=== PATIENT | male | born 1940 | race Caucasian/White ===

== ENCOUNTER 2018-04-03 20:07 | Observation (INO) | payer MEDICARE, OTHER, SELFPAY ==
[2018-04-03 20:08] VITALS: BP 160/67; PULSE 74; RESP 22; TEMP 36.8; O2SAT 98; BMI 27.9
--- NOTE | 2018-04-03 20:35 | EKG12_ITS ---
Test Reason : CP Blood Pressure : / mmHG Vent. Rate : 070 BPM Atrial Rate : 070 BPM P-R Int : 140 ms QRS Dur : 096 ms QT Int : 392 ms P-R-T Axes : 065 003 036 degrees QTc Int : 423 ms Normal sinus rhythm Incomplete right bundle branch block Confirmed by CHANEL COLLINS, LORNA ([id number]), editorial writer JOSH YANES ([id number] on 04/06/2018 1:02:13 PM Referred By: KIRILL/JOSSELYN Confirmed By:LORNA BUCHANAN MD
--- NOTE | 2018-04-03 20:38 | ED.RN ---
NO OLD EKG'S IN MUSE
[2018-04-03 20:41] LABS: Absolute Lymphocyte Count 2.75 X10^3/ul (0.83-4.51); Basophil# 0.02 X10^3/uL; Basophil% 0.3 % (0-1); Eosinophil# 0.13 X10^3/uL; Eosinophils% 1.7 % (0-5); Hematocrit 42.7 % (40-54); Hemoglobin 14.9 g/dl (13.0-16.5); Lymphocyte # 2.75 X10^3/ul (4.0); Lymphocyte % 35.1 % (19-41); Mean Corp Hgb Conc 34.9 g/gl (32-36); Mean Corpuscular Hgb 32.3 pg (27.0-32.0); Mean Corpuscular Volume 92.6 fL (80-94); Mean Platelet Vol. 10.4 fl (6.2-12.0); Monocyte# 0.94 X10^3/uL; Neutrophil # 3.99 X10^3/uL (2.7-7.7); Neutrophil % 50.8 % (47-70); POSITIVE COUNT NO; POSITIVE DIFFERENTIAL NO; POSITIVE MORPHOLOGY NO; Platelet Count 175 K/mm3 (150-450); RBC Distribution Width CV 14.1 % (11.6-14.6); RBC Distribution Width SD 47.4 fl (35.1-43.9); Red Blood Count 4.61 M/mm3 (4.6-6.2); White Blood Count 7.8 K/mm3 (4.4-11.0)
[2018-04-03] MEDS: Aspirin 81 MG TAB.CHEW 324 MG PO (20:44)
--- NOTE | 2018-04-03 20:48 | RAD_ITS ---
STUDY: X-RAY CHEST REASON FOR EXAM: Male, 77 years old. Chest pain. TECHNIQUE: PA and lateral views of the chest. COMPARISON: None. FINDINGS: The lungs are clear and expanded. There is no demonstrated pleural abnormality. Sternal cerclage wires and vascular clips are present from a prior sternotomy and coronary artery bypass graft procedure (CABG). The cardiac silhouette is within normal limits. Normal mediastinum and ilir. Normal visualized pulmonary arteries. Normal visualized aortic arch and descending thoracic aorta. There are diffuse degenerative changes of the visualized thoracic spine. Normal visualized ribs, clavicles, and shoulders. There is no demonstrated abnormality of the visualized soft tissue structures of the upper abdomen. RAD/Chest PA and Lateral IMPRESSION: No acute cardiopulmonary process. Electronically Signed: Demetrice Valdez MD at 21:43 EDT Tel , Service support ,
[2018-04-03 21:03] LABS: Anion Gap 6 (5-15); BUN 20 mg/dL (7-18); BUN/Creat Ratio 14.8 RATIO (10-20); Chloride 106 mmol/L (98-107); Creatinine, Serum 1.35 mg/dL (0.70-1.30); EST Glomerular Filtration Rate 54 mL/min (>60); Est Glom Filt Rate - Afr Amer 66 mL/min (>60); Estimated Creatinine Clearance 39.86 ml/min; Glucose 191 mg/dL (74-106); Potassium 3.8 mmol/L (3.5-5.1); Sodium Level 137 mmol/L (136-145)
--- NOTE | 2018-04-03 21:46 | ED.VISSUMM ---
- ER Visit Summary Date of Service: 04/03/18 Chief Complaint: Chest pain History of Present Illness: The patient is a 77 M who presents with chest pain. It began about 5 hours ago. He describes this very minimal. He states it is one half out of 10. However he has had shortness of breath particularly with exertion over the past month. He is normally able to exercise with no difficulty but has been unable to do this lately. He did see cardiology 2 days ago who felt this was angina and he was scheduled for an outpatient stress test. However he was told if he develops symptoms at rest he needed to go to the emergency department. Today while at rest about 5 hours before presentation he began to develop some very mild chest discomfort. He had some nausea this morning. No diaphoresis. No cough congestion rhinorrhea or infectious symptoms. Physical Examination: Afebrile vitals are notable for blood pressure 160/107 respiratory rate 22 Moist mucous membranes Resting comfortably no distress Heart regular rate and rhythm Lungs are clear Abdomen soft Extremities nontender without edema 2+ symmetric radial pulses Test Results: Chest x-ray shows no acute process. EKG shows normal sinus rhythm at a rate of 70. CBC BMP unremarkable and troponin is negative. Emergency Department Course and Treatment: Patient was given aspirin. He is already scheduled for outpatient stress test and has known coronary disease. He has progressive symptoms. He had not had any chest pain until today. Therefore I do feel he needs admitted for more urgent evaluation and schedule outpatient workup. Patient to be discussed with the hospitalist and admitted. Treatment Plan: [] Disposition: Admit Impression: Chest pain Dyspnea on exertion This note was generated with [employer] dictation software. It may contain incorrect words, spelling, and punctuation that were not noted in review of the chart prior to signing ED Disposition - Plan for ED Patient: Chief Complaint: Chest Pain Referrals: Erik Ji MD [Primary Care Provider] -
[2018-04-03 22:08] VITALS: BP 141/57; PULSE 67; RESP 18; O2SAT 98
[2018-04-03 22:21] VITALS: BP 141/57; PULSE 69; RESP 20; O2SAT 98
--- NOTE | 2018-04-03 23:02 | HP.PCM_ITS ---
Problem List (1) CAD (coronary artery disease) Status: Acute (2) CAD (coronary artery disease) of artery bypass graft Status: Acute (3) Chest pain Status: Acute (4) HTN (hypertension) Status: Chronic (5) Lipidemia Status: Acute History of Present Illness Date of Admission: 04/03/18 Chief Complaint: Chest pain The patient is a 77 year old male w/ h/o CAD s/p CABG x 18 yrs ago, HTN, and lipidemia admitted for chest pain. He has SOB several weeks ago and went this PCP who prescribed him nitro. He also start cardiology and an outpt stress test was arranged. However, he developed very mild chest pain today. Pain was substernal and lasted for minutes. Pain was not exertional. He was able to exercise as usual and has been active. Chest pain was not associated with any other symptoms. Nothing made the pain better or worse. No radiation of pain. Past Medical History Past Medical History (Chronic Problems): Chronic Problems HTN (hypertension) (Chronic) Allergies sildenafil [From Viagra] Allergy (Verified 04/03/18 20:12) Other tadalafil [From Cialis] Allergy (Verified 04/03/18 20:12) Other Home Medications: Ambulatory Orders Medication Instructions Recorded Ascorbic Acid [Vitamin C] 1,000 mg PO DAILY 04/03/18 Aspirin [Aspir-Low] 81 mg PO DAILY 04/03/18 Atenolol [Tenormin (beta marie)] 50 mg PO DAILY 04/03/18 Ibuprofen 800 mg PO PRN PRN 04/03/18 Levothyroxine [Synthroid] 112 mcg PO DAILY 04/03/18 Lisinopril [Zestril] 1 tab PO DAILY 04/03/18 Nitroglycerin [Nitroglycerin] 1 tab SL PRN PRN 04/03/18 Pantoprazole Sodium [Protonix] 20 mg PO DAILY 04/03/18 Selenium Sulfide 120 ml TP PRN PRN 04/03/18 Simvastatin 20 mg PO DAILY 04/03/18 Testosterone Cypionate 200 mg IM QMONTH 04/03/18 Vitamin B Complex 1 each PO DAILY 04/03/18 Surgical History: coronary bypass surgery Lives: Spouse/ Significant Other Smoking Status: Never smoker Alcohol: None Drugs: None - *Family History Maternal History Items: No pertinent history Review of Systems Constitutional: Denies: Chills, Fever, Weight Change HEENT: Denies: Head Aches, Sinus Congestion, Sinus Drainage Cardiovascular: Reports: Chest Pain. Denies: Claudication, Chest Tightness, Edema, Heaviness, Palpitations, Paroxysmal Noc. Dyspnea, Syncope Respiratory: Denies: Cough, Shortness of breath at rest, Sputum production Gastrointestinal: Denies: Abdominal Pain, Nausea, Vomiting Genitourinary: Denies: Dysuria Musculoskeletal: Denies: Joint Pain, Joint Tenderness Skin: Denies: Rash, Wounds Neurological: Denies: Numbness, Tingling, Focal weakness Psychiatric: Denies: Anxiety, Depression, Homicidal Ideations, Suicidal Ideations Hematologic/ Lymphatic: Denies: Easy Bruising, Easy Bleeding VTE Information - Inpt Only VTE Present on Admission: No VTE Mechan Device Prophylaxis: SCD's VTE Pharm Prophylaxis ordered?: Yes Patient Problems: Active and Suspected Problems CAD (coronary artery disease) (Acute) CAD (coronary artery disease) of artery bypass graft (Acute) Chest pain (Acute) Lipidemia (Acute) - Physical Exam General: Alert, Oriented x3, Cooperative HEENT: Atraumatic, PERRLA, EOMI, Normocephalic Neck: Supple, No JVD, Negative Carotid Bruits Lungs: Clear to auscultation, Normal air movement Cardiovascular: Regular rate, No murmurs Abdomen: Bowel Sounds Present, Soft, Non Tender Extremities: No edema, Capillary Refill Less than 3 Seconds Skin: No rashes, No breakdown Musculoskeletal: No Tenderness to Palpation of Joints or Extremities Neurological: Cranial nerves II-XII grossly intact Psych/Mental Status: Normal Affect, Appropriate Vital Signs Temp Pulse Resp BP Pulse Ox 98.2 F 69 20 H 141/57 H 98 04/03/18 20:08 04/03/18 22:21 04/03/18 22:21 04/03/18 22:21 04/03/18 22:21 Oxygen Flow Rate (L/min) 2 Oxygen Delivery Method Room Air Weight: 76.204 kg Body Mass Index (BMI) 27.9 Laboratory Tests Past 24 Hrs 04/03/18 04/03/18 20:10 20:10 WBC 7.8 RBC 4.61 Hgb 14.9 Hct 42.7 MCV 92.6 MCH 32.3 H MCHC 34.9 RDW 14.1 RDW Differential 47.4 H Plt Count 175 MPV 10.4 Immature Gran % (Auto) 0.100 Neut % (Auto) 50.8 Lymph % (Auto) 35.1 [place] % (Auto) 12.0 H Eos % (Auto) 1.7 Baso % (Auto) 0.3 Absolute Neuts (auto) 4.0 Absolute Lymphs (auto) 2.75 Total Counted Not Reportable Sodium 137 Potassium 3.8 Chloride 106 Carbon Dioxide 25.0 Anion Gap 6 BUN 20 H Creatinine 1.35 H Estim Creat Clear Calc 39.86 Est GFR (MDRD) Af Amer 66 Est GFR (MDRD) Non-Af 54 L BUN/Creatinine Ratio 14.8 Glucose 191 H Calcium 8.0 L Troponin I < 0.015 Assessment/Plan All Active Problems CAD (coronary artery disease) (Acute) CAD (coronary artery disease) of artery bypass graft (Acute) Chest pain (Acute) Lipidemia (Acute) 77 year old male w/ h/o CAD s/p CABG x 18 yrs ago, HTN, and lipidemia admitted for chest pain. 1) Chest pain: Heart score 5 EKG is nondiagnostic. Chest xray is unremarkable. Trop negative. Will get serial trops. Will get ECHO and stress test in AM. FLP in AM. 2) YARELIS: Likely azotemia. Avoid NSAID. Hydration. 3) Chronic issues: CAD s/p CABG x 18 yrs ago, HTN, and lipidemia Resume home meds. 4) Prophylaxis: SCD / Heparin
--- NOTE | 2018-04-03 23:07 | NURSING ---
Called [facility] ED charge Nurse, 2nd trop due now, asked to draw trop before sending to floor, ok to send then.
[2018-04-04] VITALS (13 sets, daily range): BP systolic 111–152; BP diastolic 55–77; PULSE 55–74; RESP 14–16; TEMP 36.5–36.7; O2SAT 94–100; BMI 27.9; BMI 28.0
[2018-04-04 02:57] LABS: Hematocrit 40.7 % (40-54); Hemoglobin 14.2 g/dl (13.0-16.5); Mean Corp Hgb Conc 34.9 g/gl (32-36); Mean Corpuscular Hgb 32.4 pg (27.0-32.0); Mean Corpuscular Volume 92.9 fL (80-94); Mean Platelet Vol. 10.4 fl (6.2-12.0); Platelet Count 167 K/mm3 (150-450); RBC Distribution Width CV 13.9 % (11.6-14.6); RBC Distribution Width SD 46.3 fl (35.1-43.9); Red Blood Count 4.38 M/mm3 (4.6-6.2); White Blood Count 5.8 K/mm3 (4.4-11.0)
[2018-04-04 03:03] LABS: Scan Indicated on CBC? Y/N NO
[2018-04-04 03:15] LABS: ALB/GLOB Ratio 0.9 RATIO (0.9-2.4); AST(SGOT) 14 U/L (15-37); Alanine Aminotransfer ALT/SGPT 23 U/L (16-61); Albumin, Serum 3.1 g/dL (3.2-5.0); Alkaline Phosphatase 81 U/L (45-117); Anion Gap 11 (5-15); BUN 20 mg/dL (7-18); BUN/Creat Ratio 17.2 RATIO (10-20); Calcium,Total 8.3 mg/dL (8.5-10.1); Chloride 107 mmol/L (98-107); Cholesterol 102 mg/dL (200); Creatinine, Serum 1.16 mg/dL (0.70-1.30); EST Glomerular Filtration Rate 65 mL/min (>60); Est Glom Filt Rate - Afr Amer 79 mL/min (>60); Estimated Creatinine Clearance 46.39 ml/min; Globulin 3.4 g/dL (2.2-4.2); Glucose 120 mg/dL (74-106); High Density Lipoprotein 35 mg/dL; Potassium 4.2 mmol/L (3.5-5.1); Protein, Total 6.5 g/dL (6.4-8.2); Sodium Level 143 mmol/L (136-145); Thyroid Stim Hormone (TSH) 1.16 uIU/mL (0.358-3.74); Triglycerides 74 mg/dL; Very Low Density Lipoprotein 15 mg/dL (5-40)
[2018-04-04 03:21] LABS: D-Dimer Quantitative (DVT/PE) 0.41 FEU/ug/m (0.27-0.49)
--- NOTE | 2018-04-04 05:55 | ECHOD_ITS ---
Reason For Study: Chest Pain Procedure This was a 2D Doppler, Color Flow transthoracic echocardiogram. The exam was of fair technical quality due to diminished acoustic windows. The study was technically difficult. Exam performed portable in patient room. Left Ventricle Normal LV size. Segmental dysfunction with preserved ejection fraction (see wall motion). The estimated ejection fraction is 60 %. Infero-Basal: Hypokinetic. Right Ventricle Normal RV size. Normal systolic function. Atria The left atrium is mildly enlarged. Normal right atrium. No doppler evidence for ASD. Mitral Valve There is no mitral annular calcification. Mild diffuse mitral valve thickening. Mild (1+) mitral valve insufficiency. Tricuspid Valve Normal tricuspid valve. Trivial tricuspid valve insufficiency. Unable to estimate RV systolic pressure/pulmonary artery pressure due to technically difficult study. Aortic Valve Trisinus/trileaflet aortic valve. Mild diffuse aortic valve thickening. Mild focal aortic valve calcification. Aortic sclerosis, no stenosis. Pulmonic Valve The pulmonic valve is not well visualized. Great Vessels Normal sized aortic root. Pericardium/Pleural No pericardial effusion. MMode/2D Measurements & Calculations LVIDd: 5.4 cm IVSd: 0.86 cm Ao root diam: 2.7 cm LVIDs: 3.8 cm LVPWd: 0.91 cm RVDd: 2.5 cm FS: 30.5 % LAV(MOD-bp): 66.1 ml EDV(MOD-sp4): 70.0 ml SV(MOD-sp4): 42.0 ml LAV(MOD-bp) Indexed: 36.7 ml/m2 ESV(MOD-sp4): 28.0 ml LAV(MOD-sp2): 61.4 ml EF(MOD-sp4): 60.0 % LAV(MOD-sp4): 65.3 ml LA A4 area: 20.6 cm2 RA A4 area: 13.9 cm2 Doppler Measurements & Calculations MV E max aman: 104.9 cm/sec Lat Peak E' Aman: 8.0 cm/sec Med Peak E' Aman: 4.4 cm/sec MV A max aman: 63.8 cm/sec E/E' lat: 13.1 E/E' med: 23.9 MV E/A: 1.6 Ao V2 max: 121.6 cm/sec LV V1 max: 82.7 cm/sec PA V2 max: 118.5 cm/sec Ao max P.9 mmHg LV V1 max P.7 mmHg Ao V2 mean: 83.8 cm/sec Ao mean P.1 mmHg Ao V2 VTI: 26.2 cm Interpretation Summary The study was technically difficult. Segmental dysfunction with preserved ejection fraction (see wall motion). The estimated ejection fraction is 60 %. The left atrium is mildly enlarged. Mild diffuse mitral valve thickening. Mild (1+) mitral valve insufficiency. Trivial tricuspid valve insufficiency. Aortic sclerosis, no stenosis. Unable to estimate RV systolic pressure/pulmonary artery pressure due to technically difficult study. Transmitral diastolic flow velocities suggest diastolic dysfunction (pseudonormal pattern). Ordering Physician: Cliff Rivera Referring Physician: Erik Ji Performed By: Nelly Casatneda, EUNICE, RVT
[2018-04-04] MEDS: Heparin Injection (Vial) 5,000 UNIT/ML VIAL 5000 UNIT SC ×3 (06:01→22:14)
--- NOTE | 2018-04-04 08:23 | PN_ITS ---
Patient Problems: Active and Suspected Problems Chest pain (Acute) Subjective: Chief complaint: Follow-up after admission for chest pain for evaluation. Patient seen and examined. No acute events overnight. Today, he has no more chest pain. He is asymptomatic. He mentioned that the pain yesterday lasted for very short time and it was very minor pain. He reported intermittent exertional shortness of breath over the last month. He does have history of CAD status post CABG 18 years ago. His vital signs are stable. - Physical Exam General: Alert, Oriented x3, Cooperative, No apparent distress HEENT: Atraumatic, PERRLA, EOMI, Normocephalic Oral: Moist Mucosa, No Gingival or Mucosal Lesions/ Ulcerations Neck: Supple, No JVD, Negative Carotid Bruits, Trachea Midline, Thyroid Normal Size and Texture Lungs: Clear to auscultation, No rhonchi, No wheeze, No rales, Diminished Cardiovascular: Regular Rhythm, Normal S1, Normal S2, No murmurs, PMI Normal Abdomen: Bowel Sounds Present, Soft, Non Tender, Non-Distended, No Hepato- splenomegaly Extremities: No clubbing, No cyanosis, No edema Skin: No rashes, No breakdown Lymphatic: No Cervical, Supraclavicular, or Inguinal Adenopathy Neurological: Cranial nerves II-XII grossly intact, Motor Exam 5/5 strength throughout Psych/Mental Status: Normal Affect, Appropriate, Alert and oriented to time, place, person, mood and affect Vital Signs Temp Pulse Resp BP Pulse Ox 98.1 F 55 L 14 111/55 L 96 04/04/18 05:59 04/04/18 07:06 04/04/18 05:59 04/04/18 05:59 04/04/18 05:59 Oxygen Delivery Method Room Air Weight: 167 lb 15.876 oz Body Mass Index (BMI) 27.9 Laboratory Tests Past 24 Hrs 04/03/18 04/04/18 04/04/18 23:10 02:28 02:28 WBC 5.8 RBC 4.38 L Hgb 14.2 Hct 40.7 MCV 92.9 MCH 32.4 H MCHC 34.9 RDW 13.9 RDW Differential 46.3 H Plt Count 167 MPV 10.4 D-Dimer Quant (PE/DVT) Sodium Potassium Chloride Carbon Dioxide Anion Gap BUN Creatinine Estim Creat Clear Calc Est GFR (MDRD) Af Amer Est GFR (MDRD) Non-Af BUN/Creatinine Ratio Glucose Calcium Total Bilirubin AST ALT Alkaline Phosphatase Troponin I < 0.015 < 0.015 B-Natriuretic Peptide Total Protein Albumin Globulin Albumin/Globulin Ratio Triglycerides Cholesterol LDL Cholesterol VLDL Cholesterol HDL Cholesterol TSH 04/04/18 04/04/18 04/04/18 02:28 02:28 02:28 WBC RBC Hgb Hct MCV MCH MCHC RDW RDW Differential Plt Count MPV D-Dimer Quant (PE/DVT) 0.41 Sodium 143 Potassium 4.2 Chloride 107 Carbon Dioxide 25.0 Anion Gap 11 BUN 20 H Creatinine 1.16 Estim Creat Clear Calc 46.39 Est GFR (MDRD) Af Amer 79 Est GFR (MDRD) Non-Af 65 BUN/Creatinine Ratio 17.2 Glucose 120 H Calcium 8.3 L Total Bilirubin 0.80 AST 14 L ALT 23 Alkaline Phosphatase 81 Troponin I B-Natriuretic Peptide 80.0 Total Protein 6.5 Albumin 3.1 L Globulin 3.4 Albumin/Globulin Ratio 0.9 Triglycerides 74 Cholesterol 102 LDL Cholesterol 52 VLDL Cholesterol 15 HDL Cholesterol 35 L TSH 1.16 Clinical Impression(s) from Imaging Studies Chest X-Ray 04/03/18 20:48 IMPRESSION: No acute cardiopulmonary process. Electronically Signed: Demetrice Valdez MD at 21:43 EDT Tel , Service support , Medical Necessity - Tobacco Use Smoking Status: Never smoker Assessment/Plan All Active Problems Chest pain (Acute) This is a 77 years old male patient admitted for chest pain for evaluation. #1 chest pain: Today, patient has no more chest pain. He mentioned that it was very minor and for very short period of time. But he does report that intermittent exertional shortness of breath. He had a history of CAD status post CABG 18 years ago as well as hyperlipidemia and hypertension. Initial EKG revealed normal sinus rhythm without evidence of acute ischemic changes. Repeat EKG from this morning revealed sinus rhythm, P-wave is there but it was reported as atrial fibrillation. To me, it is normal sinus rhythm, rate is controlled and no acute ischemic changes. Troponin negative ?2. Chest x-ray showed no acute findings. 2D echocardiogram and nuclear stress test ordered. Plan to repeat EKG tomorrow morning to confirm if the patient has afebrile now. #2 hypertension: Blood pressure stable, continue atenolol and lisinopril. #3 CAD status post CABG: Plan as above, continue aspirin, statins, atenolol and lisinopril. #4 hyperlipidemia: Continue statins. #5 hypothyroidism: Continue levothyroxine. #6 DVT prophylaxis: Subcu heparin. This note was generated with [employer] dictation software. It may contain incorrect words, spelling, and punctuation that were not noted in checking the note before signing. Code Visit OBSV E&M: 22442 Subsequent observation care L2
[2018-04-04] MEDS: Aspirin E.C. 81 MG Tablet PO (10:14)
[2018-04-04] MEDS: Ascorbic Acid 500 MG Tablet 1000 MG PO (10:14)
[2018-04-04] MEDS: Atenolol 50 MG Tablet PO (10:15)
[2018-04-04] MEDS: Lisinopril 10 MG Tablet PO (10:16)
[2018-04-04] MEDS: Pantoprazole Sodium 20 MG Tablet PO (10:16)
[2018-04-04] MEDS: Vitamin B Comp W-C Capsule 1 CAP PO (10:17)
[2018-04-04] MEDS: Levothyroxine 112 MCG Tablet PO (13:38)
[2018-04-04] MEDS: Atorvastatin Calcium 10 MG Tablet PO (22:14)
[2018-04-05 04:00] VITALS: BP 134/71; PULSE 71; RESP 16; TEMP 36.8; O2SAT 96
[2018-04-05 04:37] VITALS: PULSE 65
[2018-04-05 05:12] LABS: Hematocrit 42.6 % (40-54); Hemoglobin 14.9 g/dl (13.0-16.5); Mean Corpuscular Hgb 32.5 pg (27.0-32.0); Mean Platelet Vol. 10.4 fl (6.2-12.0); Platelet Count 182 K/mm3 (150-450); RBC Distribution Width CV 13.8 % (11.6-14.6); RBC Distribution Width SD 45.9 fl (35.1-43.9); Red Blood Count 4.58 M/mm3 (4.6-6.2); White Blood Count 7.4 K/mm3 (4.4-11.0)
[2018-04-05 05:16] LABS: Scan Indicated on CBC? Y/N NO
[2018-04-05] MEDS: Aspirin E.C. 81 MG Tablet PO (05:22)
[2018-04-05] MEDS: Levothyroxine 112 MCG Tablet PO (05:22)
[2018-04-05] MEDS: Lisinopril 10 MG Tablet PO (05:22)
[2018-04-05 05:27] LABS: Anion Gap 8 (5-15); BUN 23 mg/dL (7-18); BUN/Creat Ratio 19.5 RATIO (10-20); Calcium,Total 8.7 mg/dL (8.5-10.1); Chloride 107 mmol/L (98-107); Creatinine, Serum 1.18 mg/dL (0.70-1.30); EST Glomerular Filtration Rate 64 mL/min (>60); Est Glom Filt Rate - Afr Amer 77 mL/min (>60); Glucose 140 mg/dL (74-106); Potassium 4.7 mmol/L (3.5-5.1); Sodium Level 140 mmol/L (136-145)
[2018-04-05 05:31] LABS: Bedside Glucose 129 mg/dL (70-110)
--- NOTE | 2018-04-05 05:55 | EKG12_ITS ---
Test Reason : AM EKG Blood Pressure : / mmHG Vent. Rate : 068 BPM Atrial Rate : 068 BPM P-R Int : 144 ms QRS Dur : 090 ms QT Int : 410 ms P-R-T Axes : 064 002 029 degrees QTc Int : 435 ms Normal sinus rhythm Incomplete right bundle branch block Inferior PA, age undetermined, cannot be excluded Confirmed by CHANEL COLLINS, LORNA ([id number]), technical writer and editor JOSH YANES ([id number] on 04/06/2018 2:18:12 PM Referred By: RIVERA Confirmed By:LORNA BUCHANAN MD
[2018-04-05 07:10] LABS: Prothrombin Time (Protime)PT. 13.2 SECONDS (11.7-14.9)
[2018-04-05 09:29] VITALS: BP 141/61; PULSE 73; RESP 16; TEMP 36.9; O2SAT 100
[2018-04-05] MEDS: Pantoprazole Sodium 20 MG Tablet PO (09:39)
[2018-04-05] MEDS: Vitamin B Comp W-C Capsule 1 CAP PO (09:39)
[2018-04-05] MEDS: Atenolol 50 MG Tablet PO (09:40)
[2018-04-05] MEDS: Ascorbic Acid 500 MG Tablet 1000 MG PO (09:40)
--- NOTE | 2018-04-05 10:07 | STRESSREP ---
Stress Test Report Date: 04/05/2018 Procedure: Pharmacologic stress nuclear imaging study Indications: Chest pain: CAD; CABG Consent: Per the patient Procedure: The patient underwent pharmacologic (Regadenoson) evaluation with a peak heart rate of 93 beats per minute (65 predicted maximal heart rate) and a peak blood pressure of 142/84 mmHg. The baseline ECG demonstrated normal sinus rhythm. The peak pharmacologic ECG demonstrated no obvious ECG changes. There were no cardiac dysrhythmias pretest, during pharmacologic infusion, or recovery. There was no complaint of chest discomfort during pharmacologic infusion or recovery. The examination was discontinued secondary to completion of protocol. Impression: 1. Pharmacologic (Regadenoson) evaluation 2. Peak pharmacologic ECG with no obvious ECG changes. 3. There were no cardiac dysrhythmias pretest, during pharmacologic infusion, or recovery 4. Nuclear images pending Myocardial perfusion imaging study: Technique: The patient was injected with 11.8 millicuries of technetium 99m Cardiolite and subsequently rest SPECT Cardiolite nuclear imaging was obtained in the horizontal long, vertical long, and short axis views. The patient underwent pharmacologic (Regadenoson) evaluation with a peak heart rate of 93 beats per minute (65 % percent predicted maximal heart rate) and a peak blood pressure of 142/84 mmHg. The patient was injected with 33.5 millicuries of technetium 99m Cardiolite and subsequently stress SPECT Cardiolite nuclear imaging was obtained in the horizontal long, vertical long, and short axis views. A gated Cardiolite study at peak stress was obtained. Interpretation: Rest and stress SPECT Cardiolite nuclear imaging status post realignment, normalization, and attenuation correction demonstrate extracardiac/gastrointestinal tracer uptake near the inferior segments. There is end systolic thickening and brightening. The gated Cardiolite study demonstrates myocardial thickening and inward wall motion. The reported LVEF is 69 %. Impression: 1. Rest and stress SPECT Cardiolite nuclear imaging demonstrate relative uniform tracer uptake and myocardial perfusion appearing within normal limits. 2. The gated Cardiolite study reports an LVEF of 69 %. This note was generated with [employer] software. It may contain incorrect words, spelling, and punctuation that were not noted in checking the note before signing.
--- NOTE | 2018-04-05 11:01 | DCINST_ITS ---
- Discharge Diagnoses Current Active Problems: Current Active and Chronic Problems Hyperlipidemia (Chronic) Status post coronary artery bypass graft (Chronic) CAD (coronary artery disease) (Chronic) Chest pain (Acute) HTN (hypertension) (Chronic) You will use the following diet at home:: Cardiac Your food should be the consistency of: Regular Discharge Activity: Return to Normal Activity Weight Bearing Status: Weight bearing as tolerated Call your doctor if you observe: Fever of 101 or Higher, Shortness of breath, Dizziness, Fainting spells, Chest pain, Increased palpitations (irregular heartbeat), Uncontrolled pain Allergies/Adverse Reactions: Allergies sildenafil [From Viagra] Allergy (Verified 04/03/18 20:12) Other tadalafil [From Cialis] Allergy (Verified 04/03/18 20:12) Other Medications to take at Discharge Ascorbic Acid [Vitamin C] 1,000 mg PO DAILY 04/03/18 Aspirin [Aspir-Low] 81 mg PO DAILY 04/03/18 Atenolol [Tenormin (beta marie)] 50 mg PO DAILY 04/03/18 Ibuprofen 800 mg PO PRN PRN 04/03/18 Levothyroxine [Synthroid] 112 mcg PO DAILY 04/03/18 Lisinopril [Zestril] 1 tab PO DAILY 04/03/18 Nitroglycerin 1 tab SL PRN PRN 04/03/18 Pantoprazole Sodium [Protonix] 20 mg PO DAILY 04/03/18 Selenium Sulfide 120 ml TP PRN PRN 04/03/18 Simvastatin 20 mg PO DAILY 04/03/18 Testosterone Cypionate 200 mg IM QMONTH 04/03/18 Vitamin B Complex 1 each PO DAILY 04/03/18 Isosorbide Mononitrate [Imdur] 30 mg PO DAILY #30 tab 04/05/18 The following prescriptions were given: Isosorbide Mononitrate [Imdur] 30 mg PO DAILY #30 tab Primary Care Physician: Erik Ji MD [Primary Care Provider] - Please follow up with your Primary Care Physician in: 2-4 weeks. Test Results: Test results from this visit will be discussed in further detail at your follow- up appointment, if applicable. Please Follow Up With: Omar Carballo MD When: this week. Please call his office.
[2018-04-05 11:15] VITALS: PULSE 61
--- NOTE | 2018-04-05 11:23 | DS.PCM_ITS ---
Discharge Date and Diagnosis Date of Admission: 04/03/18 Date of Discharge: 04/05/18 - Primary Discharge Diagnosis Active and Suspected Problems Chest pain, ACS ruled out (Acute) - Secondary Discharge Diagnosis Chronic Problems Hyperlipidemia (Chronic) Status post coronary artery bypass graft (Chronic) CAD (coronary artery disease) (Chronic) HTN (hypertension) (Chronic) Hospital Course and Treatment Imaging Results: 04/05/18 05:55 Nuclear Stress Test - Chemical [NM] Routine Clinical Impression(s) from Imaging Studies Chest X-Ray 04/03/18 20:48 IMPRESSION: No acute cardiopulmonary process. Electronically Signed: Demetrice Valdez MD at 21:43 EDT Tel , Service support , Procedures: 2-D Echocardiogram, EKG, Stress test Summary of Care Provided: Patient seen and examined on the day of discharge and appeared to be stable to be discharged home. He has normal symptoms, no chest pain. Vital signs are stable. - Physical Exam General: Alert, Oriented x3, Cooperative, No apparent distress. HEENT: Atraumatic, PERRLA, EOMI. Neck: Supple, No JVD, Negative Carotid Bruits, Trachea Midline, Thyroid Normal. Lungs: Clear to auscultation, Normal air movement, No rhonchi, No wheeze, No rales. Cardiovascular: Regular rate, Regular Rhythm, Normal S1, Normal S2, PMI Normal. Abdomen: Bowel Sounds Present, Soft, Non Tender, Non-Distended, No Hepato- splenomegaly. Extremities: No clubbing, No cyanosis, No edema Skin: No rashes, No breakdown Neurological: Neuro grossly intact Vital Signs are stable. Hospital course: The patient is a 77 year old M admitted because of chest pain as well as exertional shortness of breath for evaluation. His EKG revealed normal sinus rhythm without evidence for acute ischemic changes. His cardiac enzymes are negative ?3. Chest x-ray showed no acute findings. This patient has a history of CAD status post CABG 18 years ago. She has been following up with Dr. Grimes and recently, he complained to him about exertional shortness of breath that has been going on for couple of weeks. During this hospital stay, patient underwent nuclear stress test that was negative for stress-induced myocardial ischemia with preserved ejection fraction. Acute coronary syndrome ruled out. 2D echocardiogram revealed ejection fraction 60%, other findings reviewed and there was no acute findings. His routine blood work was unremarkable. Patient mentioned that his director pediatric, Dr. Grimes, spoke about need of cardiac catheterization because of this exertional shortness of breath and this happened before this admission which was 4 chest pain. I spoke with Dr. Grimes over the phone and I informed him that his cardiac workup including EKG , cardiac enzymes and stress test was unremarkable and he mentioned that there is no need for cardiac catheterization and he recommended to start him on isosorbide mononitrate. Patient discharged home in stable medical condition, started on isosorbide mononitrate 30 mg p.o. daily, continued on his home medication without any changes, Dr. Grimes wanted him to follow-up with him this week which was recommended, also recommended follow-up with PCP in 2-3 weeks. Discharge Activity: Return to Normal Activity Weight Bearing Status: Weight bearing as tolerated Call your doctor if you observe: Fever of 101 or Higher, Shortness of breath, Dizziness, Fainting spells, Chest pain, Increased palpitations (irregular heartbeat), Uncontrolled pain Home Medications: Medications to take at Discharge Ascorbic Acid [Vitamin C] 1,000 mg PO DAILY 04/03/18 Aspirin [Aspir-Low] 81 mg PO DAILY 04/03/18 Atenolol [Tenormin (beta marie)] 50 mg PO DAILY 04/03/18 Ibuprofen 800 mg PO PRN PRN 04/03/18 Levothyroxine [Synthroid] 112 mcg PO DAILY 04/03/18 Lisinopril [Zestril] 1 tab PO DAILY 04/03/18 Nitroglycerin 1 tab SL PRN PRN 04/03/18 Pantoprazole Sodium [Protonix] 20 mg PO DAILY 04/03/18 Selenium Sulfide 120 ml TP PRN PRN 04/03/18 Simvastatin 20 mg PO DAILY 04/03/18 Testosterone Cypionate 200 mg IM QMONTH 04/03/18 Vitamin B Complex 1 each PO DAILY 04/03/18 Isosorbide Mononitrate [Imdur] 30 mg PO DAILY #30 tab 04/05/18 Following Prescrptions Were Given to Patient: Isosorbide Mononitrate [Imdur] 30 mg PO DAILY #30 tab Primary Care Physician: Erik Ji MD [Primary Care Provider] - Please follow up with your Primary Care Physician in: 2-4 weeks. Please Follow Up With: Omar Carballo MD When: this week. Please call his office. Disposition: Home Minutes spent on discharge:: 26 Patient Condition:: Stable Medical Necessity - Tobacco Use Smoking Status: Never smoker Meaningful Use Info Meaningful Use Diagnoses (Choose all that apply): None applicable Code Visit OBSV E&M: 28009 Observation care discharge
== END 2018-04-05 11:00 | disposition home or self-care (01) ==
LOC: ED 21:07 → PCU 23:05
PROVIDERS: Admitting Provider Internal Medicine; Emergency Provider Emergency Medicine; Family Provider Internal Medicine; PCP Internal Medicine; Visit Provider Hospitalist
DX: R07.89 Other chest pain (principal); R06.02 Shortness of breath; I25.10 Atherosclerotic heart disease of native coronary artery without angina pectoris; R06.09 Other forms of dyspnea; I10 Essential (primary) hypertension; Z79.899 Other long term (current) drug therapy; Z95.1 Presence of aortocoronary bypass graft; Z79.82 Long term (current) use of aspirin; N17.9 Acute kidney failure, unspecified; E78.5 Hyperlipidemia, unspecified
CPT/HCPCS: 36415; 71046; 78452; 80048; 80053; 80061; 82962; 83880; 84443; 84484; 85025; 85027; 85379; 85610; 85730; 93005; 93017; 93306; 96372; 99218; 99284; A9500; A4216; G0378; J2785

== ENCOUNTER → 2019-11-10 08:05 | Outpatient (CLI) | payer MEDICARE, OTHER, SELFPAY ==
[2019-05-04 08:02] VITALS: BMI 27.7
[2019-11-10 09:46] LABS: AST(SGOT) 14 U/L (15-37); Alanine Aminotransfer ALT/SGPT 21 U/L (16-61); Albumin, Serum 3.8 g/dL (3.2-5.0); Alkaline Phosphatase 97 U/L (45-117); Bilirubin, Direct 0.21 mg/dL (0.00-0.30); Cholesterol 143 mg/dL (200); Globulin 3.4 g/dL (2.2-4.2); High Density Lipoprotein 39 mg/dL; Protein, Total 7.2 g/dL (6.4-8.2); Triglycerides 122 mg/dL; Very Low Density Lipoprotein 24 mg/dL (5-40)
== END ==
PROVIDERS: PCP Internal Medicine; Referring Provider Internal Medicine Cardiovascular Disease; Visit Provider Internal Medicine Cardiovascular Disease
DX: E78.00 Pure hypercholesterolemia, unspecified (principal); I48.92 Unspecified atrial flutter; I48.0 Paroxysmal atrial fibrillation; I45.10 Unspecified right bundle-branch block; I10 Essential (primary) hypertension; I25.10 Atherosclerotic heart disease of native coronary artery without angina pectoris; E78.5 Hyperlipidemia, unspecified; Z95.1 Presence of aortocoronary bypass graft
CPT/HCPCS: 36415; 80061; 80076

== ENCOUNTER → 2020-05-01 09:40 | Outpatient (CLI) | payer MEDICARE, OTHER, SELFPAY ==
[2019-11-15 14:29] VITALS: BMI 27.2
== END ==
PROVIDERS: PCP Internal Medicine
DX: Z20.828 Contact with and (suspected) exposure to other viral communicable diseases (principal)
CPT/HCPCS: 87635; 94799; U0003

== ENCOUNTER 2020-06-08 14:25 | Emergency (ER) | payer MEDICARE, OTHER, SELFPAY ==
[2020-05-17 07:32] VITALS: BMI 25.9
[2020-06-08 14:26] VITALS: BP 155/79; PULSE 66; RESP 17; TEMP 37.3; O2SAT 99; BMI 25.7
[2020-06-08 15:22] LABS: Bacteria 0 SEEN /hpf (None Seen); Mucous, Urine 0 SEEN /hpf (<or=2+); Red Blood Cells-Urine 0 SEEN /hpf (0-5); Squamous Epithelial Cells - UA 0 SEEN /hpf (0-5); White Blood Cells 0 SEEN /hpf (0-5)
[2020-06-08 15:24] LABS: Color, Urine Yellow (Yellow); Glucose, Dipstick Normal (Normal); Ketone-Dipstick Negative (Negative); Leukocyte Esterase-Dipstick Negative /ul (Negative); Nitrite-Dipstick Negative (Negative); Occult Blood-Urine Negative /ul (Negative); Protein-Dipstick Negative (Negative); Urine Bilirubin Dipstick Negative (Negative); Urine Clarity Clear (Clear); Urine Urobilinogen Normal (Normal)
--- NOTE | 2020-06-08 15:41 | CT_ITS ---
STUDY: CT ABDOMEN AND PELVIS WITHOUT CONTRAST REASON FOR EXAM: Male, 79 years old. LEFT FLANK PAIN X 2 WEEKS. RADIATION DOSAGE (If Supplied By Facility): CTDIvol = ( 7.11 ) mGy, DLP = ( 319.81 ) mGycm TECHNIQUE: Transaxial images were obtained from the dome of the diaphragm to the symphysis pubis without oral contrast, and without intravenous contrast. Sagittal and coronal images were reconstructed. Individualized dose optimization techniques were used for this CT. COMPARISON: None. FINDINGS: The visualized lung bases are unremarkable. The visualized portions of the heart are within normal limits. Normal liver. There is a solitary gallstone. Normal spleen. Normal pancreas. Normal bilateral adrenal glands. Normal right kidney. Normal left kidney. Normal visualized stomach. Normal small intestine. Normal colon. The appendix is visualized and appears normal. Normal abdominal aorta. Normal inferior vena cava. Normal retroperitoneum. Normal urinary bladder. Normal abdominal wall. Normal osseous structures. CT/Abdomen/Pelvis without Cont IMPRESSION: Normal unenhanced CT of the abdomen and pelvis. Electronically Signed: Binh Sargent MD at 17:07 EDT Tel , Service support ,
--- NOTE | 2020-06-08 15:42 | ED.DCSUM_ITS ---
History of Present Illness Chief Complaint: Flank Pain Informant: Patient Narrative: Patient presents the emergency department with 2 weeks of left flank pain. Patient states that the pain is stayed about the same. It feels like he has been stabbed with a knife. Nonradiating. He denies any urinary or bowel symptoms. He states that it is worse with with certain movements. He states it is tolerable but nothing that he would like to live with his life. States that he had a kidney stone many years ago and this reminds him of that. He states that he has not had any fever or nausea or vomiting. He was able to go for a 2 mile walk today. - Past Medical History (1) Atherosclerosis of coronary artery of [place] heart without angina pectoris Status: Chronic Comment: CABG x 4 04/2000 (2) Essential (primary) hypertension Status: Chronic (3) Hyperlipidemia Status: Chronic (4) Incomplete right bundle branch block Status: Chronic (5) Paroxysmal atrial fibrillation Status: Chronic Comment: 08/2018 new onset; DICK cardioversion 08/26/2018 at [facility]; (6) Paroxysmal atrial flutter Status: Chronic (7) H/O coronary artery bypass surgery Status: Resolved Past Medical History - Allergies and Home Meds Allergies/Adverse Reactions: Allergies sildenafil [From Viagra] Allergy (Verified 06/08/20 14:26) Other tadalafil [From Cialis] Allergy (Verified 06/08/20 14:26) Other Primary Care Physician: Erik Ji MD [Primary Care Provider] - 3-5 Days Surgical History: coronary bypass surgery Smoking Status: Never smoker - Family History Maternal Family History: Family History (Last Reviewed 05/04/19 @ 13:[address] Nitish Peraza MD) Father Myocardial infarction Uncle Myocardial infarction Other CAD (coronary artery disease) Family History: Reports: No pertinent history Review of Systems General: Denies: Chills, Fever, Sweats Eyes: Denies: Visual changes - bilaterally, Diplopia ENT: Denies: Rhinorrhea, Sore throat Cardiovascular: Denies: Chest pain, Palpitations Respiratory: Denies: Dyspnea, Cough, Dyspnea on exertion Gastrointestinal: Denies: Abdominal pain, Nausea, Vomiting, Diarrhea, Melena, Hematochezia Genitourinary: Reports: - - Left flank pain. Denies: Dysuria, Hematuria, Frequency Musculoskeletal: Denies: Back pain, Extremity Pain Skin: Denies: Rash, Wounds Neurological: Denies: Headache, Weakness, Numbness Physical Exam Vital Signs/Narrative: Vital Signs Temp Pulse Resp BP Pulse Ox 06/08/20 14:26 99.1 F 66 17 155/79 H 99 Inital Vital Signs reviewed: Yes General: Well nourished, Well developed, No Acute Distress Head: Normocephalic, Atraumatic Eyes: Perrl, EOMI ENT: Moist mucous membranes, No rhinorrhea Neck: Supple, Nontender Cardiovascular: Regular rate, Regular rhythm, No murmurs Respiratory: No distress, CTA bilaterally, Chest nontender Abdomen: Soft, Nontender, Nondistended, Normal bowel sounds Back: - - TTP Left CVA region. No rash Extremities: Nontender, No edema Skin: Normal color, No rash Neurological: Alert, Oriented x3, Cranial nerves II-XII grossly intact, Normal Strength, Normal Sensation Psychological: Normal affect, Normal Mood Diagnostic/Tx/Re-eval Clinical Impression(s) from Imaging Studies Abdomen/Pelvis CT 06/08/20 15:41 IMPRESSION: Normal unenhanced CT of the abdomen and pelvis. Electronically Signed: Binh Sargent MD at 17:07 EDT Tel , Service support , Laboratory Last Values WBC 7.7 K/mm3 (4.4-11.0) 06/08/20 16:15 RBC 4.03 M/mm3 (4.6-6.2) L 06/08/20 16:15 Hgb 12.7 g/dL (13.0-16.5) L 06/08/20 16:15 Hct 37.2 % (40-54) L 06/08/20 16:15 MCV 92.3 fL (80-94) 06/08/20 16:15 MCH 31.5 pg (27.0-32.0) 06/08/20 16:15 MCHC 34.1 g/dL (32-36) 06/08/20 16:15 RDW Std Deviation 47.5 fl (35.1-43.9) H 06/08/20 16:15 RDW Coeff of Danial 14.2 % (11.6-14.6) 06/08/20 16:15 Plt Count 181 K/mm3 (150-450) 06/08/20 16:15 MPV 10.1 fl (6.2-12.0) 06/08/20 16:15 Immature Gran % (Auto) 0.300 % (0.0-0.9) 06/08/20 16:15 Neut % (Auto) 58.6 % (47-70) 06/08/20 16:15 Lymph % (Auto) 30.9 % (19-41) 06/08/20 16:15 [place] % (Auto) 7.6 % (0-10) 06/08/20 16:15 Eos % (Auto) 2.2 % (0-5) 06/08/20 16:15 Baso % (Auto) 0.4 % (0-1) 06/08/20 16:15 Absolute Neuts (auto) 4.5 X10^3/uL (2.0-7.7) 06/08/20 16:15 Absolute Lymphs (auto) 2.37 X10^3/uL (0.83-4.51) 06/08/20 16:15 Nucleated RBC % 0 % (0-5) 06/08/20 16:15 Platelet Estimate ADEQUATE (ADEQ) 06/08/20 16:15 RBC Morphology N CHROM NORMAL (NORM C&C) 06/08/20 16:15 Anisocytosis RARE 06/08/20 16:15 Macrocytosis RARE 06/08/20 16:15 Sodium 139 mmol/L (136-145) 06/08/20 16:15 Potassium 3.6 mmol/L (3.5-5.1) 06/08/20 16:15 Chloride 106 mmol/L (98-107) 06/08/20 16:15 Carbon Dioxide 29.0 mmol/L (21.0-32.0) 06/08/20 16:15 Anion Gap 4 (5-15) L 06/08/20 16:15 BUN 8 mg/dL (7-18) 06/08/20 16:15 Creatinine 0.96 mg/dL (0.70-1.30) 06/08/20 16:15 Estim Creat Clear Calc 56.30 ml/min 06/08/20 16:15 Est GFR (MDRD) Af Amer 97 mL/min (>60) 06/08/20 16:15 Est GFR (MDRD) Non-Af 80 mL/min (>60) 06/08/20 16:15 BUN/Creatinine Ratio 8.3 RATIO (10-20) L 06/08/20 16:15 Glucose 134 mg/dL (74-106) H 06/08/20 16:15 Calcium 8.5 mg/dL (8.5-10.1) 06/08/20 16:15 Urine Color Yellow (Yellow) 06/08/20 15:15 Urine Clarity Clear (Clear) 06/08/20 15:15 Urine pH 6.0 (5.0 - 8.0) 06/08/20 15:15 Ur Specific [place] 1.010 (1.002-1.030) 06/08/20 15:15 Urine Protein Negative mg/dl (Negative) 06/08/20 15:15 Urine Glucose (UA) Normal mg/dl (Normal) 06/08/20 15:15 Urine Ketones Negative mg/dl (Negative) 06/08/20 15:15 Urine Occult Blood Negative /ul (Negative) 06/08/20 15:15 Urine Nitrite Negative (Negative) 06/08/20 15:15 Urine Bilirubin Negative mg/dL (Negative) 06/08/20 15:15 Urine Urobilinogen Normal mg/dl (Normal) 06/08/20 15:15 Ur Leukocyte Esterase Negative /ul (Negative) 06/08/20 15:15 Urine RBC 0 SEEN /hpf (0-5) 06/08/20 15:15 Urine WBC 0 SEEN /hpf (0-5) 06/08/20 15:15 Ur Squamous Epith Cells 0 SEEN /hpf (0-5) 06/08/20 15:15 Urine Bacteria 0 SEEN /hpf (None Seen) 06/08/20 15:15 Urine Mucus 0 SEEN /hpf (<or=2+) 06/08/20 15:15 - Medical Decision Making CBC BMP and urinalysis were normal. CT of the abdomen pelvis without contrast for stone protocol demonstrates no obvious ureterolithiasis or hydronephroureter. Patient received a dose of Toradol. I think this is most likely be musculoskeletal given the negative above work-up. I recommend he follow-up with primary care. ED Disposition - Plan for ED Patient: Disposition: Home or Assisted Living Diagnosis: Left flank pain Instructions: ED Flank Pain Uncertain Cause Referrals: Erik Ji MD [Primary Care Provider] - 3-5 Days
[2020-06-08] MEDS: Ketorolac 30 MG/ML Syringe 15 MG IV (16:16)
[2020-06-08 16:25] LABS: Absolute Lymphocyte Count 2.37 X10^3/uL (0.83-4.51); Absolute Neutrophil Count 4.5 X10^3/uL (2.0-7.7); Basophil# 0.03 X10^3/uL; Basophil% 0.4 % (0-1); Eosinophil# 0.17 X10^3/uL; Eosinophils% 2.2 % (0-5); Hematocrit 37.2 % (40-54); Hemoglobin 12.7 g/dL (13.0-16.5); Lymphocyte # 2.37 X10^3/ul (4.0); Lymphocyte % 30.9 % (19-41); Mean Corp Hgb Conc 34.1 g/dL (32-36); Mean Corpuscular Hgb 31.5 pg (27.0-32.0); Mean Corpuscular Volume 92.3 fL (80-94); Mean Platelet Vol. 10.1 fl (6.2-12.0); Monocyte# 0.58 X10^3/uL; Monocyte% 7.6 % (0-10); NRBC Flagged by Analyzer 0 % (0-5); Neutrophil % 58.6 % (47-70); POSITIVE MORPHOLOGY YES; Platelet Count 181 K/mm3 (150-450); RBC Distribution Width CV 14.2 % (11.6-14.6); RBC Distribution Width SD 47.5 fl (35.1-43.9); Red Blood Count 4.03 M/mm3 (4.6-6.2); White Blood Count 7.7 K/mm3 (4.4-11.0)
[2020-06-08 16:32] LABS: Differential Indicated SCAN CRITERIA MET
[2020-06-08 16:37] LABS: Anion Gap 4 (5-15); BUN 8 mg/dL (7-18); BUN/Creat Ratio 8.3 RATIO (10-20); Calcium,Total 8.5 mg/dL (8.5-10.1); Chloride 106 mmol/L (98-107); Creatinine, Serum 0.96 mg/dL (0.70-1.30); EST Glomerular Filtration Rate 80 mL/min (>60); Est Glom Filt Rate - Afr Amer 97 mL/min (>60); Glucose 134 mg/dL (74-106); Potassium 3.6 mmol/L (3.5-5.1); Sodium Level 139 mmol/L (136-145)
[2020-06-08 17:00] VITALS: RESP 16
[2020-06-08 17:06] LABS: Anisocytosis RARE; Macrocytosis RARE; Platelet Estimate ADEQUATE (ADEQ); Red Cell Morphology N CHROM NORMAL (NORM C&C)
[2020-06-08 17:40] VITALS: BP 151/89; PULSE 59; RESP 16
== END 2020-06-08 17:41 | disposition home or self-care (01) ==
LOC: ED 17:15
PROVIDERS: Emergency Provider Emergency Medicine; PCP Internal Medicine
DX: R10.9 Unspecified abdominal pain (principal); I25.10 Atherosclerotic heart disease of native coronary artery without angina pectoris; E78.5 Hyperlipidemia, unspecified; I10 Essential (primary) hypertension; I48.0 Paroxysmal atrial fibrillation; Z95.1 Presence of aortocoronary bypass graft; Z79.899 Other long term (current) drug therapy
CPT/HCPCS: 74176; 80048; 81001; 85025; 96374; 99285; A4216

== ENCOUNTER 2021-03-14 17:06 | Emergency (ER) | payer MEDICARE, OTHER, SELFPAY ==
[2021-01-18 10:35] VITALS: BMI 25.7
[2021-03-14 17:06] VITALS: BP 117/54; PULSE 55; RESP 16; TEMP 36.3; O2SAT 98; BMI 24.2
--- NOTE | 2021-03-14 18:12 | CT_ITS ---
We are attempting to reach an attending provider to discuss findings. An addendum with communication details will be sent when the communication is complete. HISTORY: TIA TECHNIQUE: Noncontrast axial images were obtained of the brain. Subsequently, routine carotid CT angiogram protocol was performed without and with IV contrast. In addition, images were obtained of the [place] of [place]. Nascet criteria using the distal ICAs for comparison were used for evaluation of stenoses. 3D reconstructions were reviewed. A radiation dose optimization technique was used for this scan. IV Contrast dosage and agent: 100mL [id number] COMPARISON: None FINDINGS: --CT BRAIN: BRAIN PARENCHYMA: No intra- or extra-axial hemorrhage. No evidence of acute infarct. No intracranial mass or mass effect. There is preservation of the law[place]/white matter interface. Posterior fossa structures are unremarkable. CSF SPACES: Appropriate for age. No hydrocephalus. Basal cisterns are patent. CALVARIUM, SKULL BASE, PARANASAL SINUSES AND MASTOID AIR CELLS: Clear. No discrete lytic or blastic abnormalities. ORBITS: Both globes, extraocular muscles, optic nerves and retrobulbar fat appear unremarkable. ASPECTS Score for Acute Strokes: 10 --CTA NECK: AORTIC ARCH AND BRANCHES: Normal anatomy, patent. RIGHT CCA: No occlusion, significant stenosis or dissection. RIGHT ICA: 60% stenosis near the origin without occlusion or dissection. LEFT CCA: No occlusion, significant stenosis or dissection. LEFT ICA: 50% stenosis. The origin without occlusion or dissection. RIGHT VERTEBRAL ARTERY: 50% stenosis at the base of the skull without occlusion. LEFT VERTEBRAL ARTERY: 50% stenosis at the base of the skull without occlusion. NECK SOFT TISSUES: Unremarkable. --CTA HEAD: --Anterior circulation: ICAs: No significant stenosis at the intracranial/visualized segments. ACAs: No significant stenosis at the visualized segments. ACOM: Absent. 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 --Posterior circulation: supervisor customer complaint service: No significant stenosis at the visualized segments. BASILAR ARTERY: No significant stenosis. VERTEBRAL ARTERIES: No significant stenosis at the intradural/visualized segments. No evidence of intracranial aneurysm or vascular malformation. CT/CTA Head AND Neck W/ Contrast IMPRESSION: Unenhanced CT Brain: No acute intracranial abnormalities. 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 CTA Neck: 60% stenosis of the proximal right ICA, 50% stenosis of the proximal left ICA. 50% stenosis of the bilateral vertebral arteries at the base of the skull. Individualized dose optimization techniques were used for this CT. at 1930 Reported and signed by: Von Jett MD Electronically Signed: Von Jett MD at 19:29 EDT Tel , Service support ,
--- NOTE | 2021-03-14 18:13 | EKG12_ITS ---
Test Reason : DIZZINESS Blood Pressure : / mmHG Vent. Rate : 054 BPM Atrial Rate : 054 BPM P-R Int : 150 ms QRS Dur : 100 ms QT Int : 452 ms P-R-T Axes : 066 008 004 degrees QTc Int : 428 ms Sinus bradycardia Incomplete right bundle branch block Possible Inferior infarct , age undetermined Abnormal ECG Confirmed by HELENA COLLINS, GIANA ([id number]), marketing editor MARY ZHANG ([id number]) on 03/15/2021 1:03:10 PM Referred By: ANU Confirmed By:GIANA MALIK MD
--- NOTE | 2021-03-14 18:22 | EDS_ITS ---
HPI History of Present Illness Chief Complaint: Dizziness Informant: patient Onset/Context/Timing Onset: Today Current Severity: Gone Maximum Severity: Moderate Narrative Narrative: Patient presents after an episode of feeling woozy in his head with some paresthesias to the right side. Patient states he and his walk every morning. After returning from her walk this morning he states his head felt heavy and woozy. He had a very brief period of tingling in his right arm and leg. He denies any motor weakness with it. He went to lay down and after getting up told his about the episode he had had. 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 Patient has no complaints at this time. He does have a history of paroxysmal A. fib and is on Xarelto. [facility] Medical History (Updated 03/14/21 @ 20:[address] Mamie Frances MD) Adenomatous colon polyp Atherosclerosis of coronary artery of [place] heart without angina pectoris BPH (benign prostatic hyperplasia) CKD (chronic kidney disease) Erectile dysfunction Essential (primary) hypertension GERD (gastroesophageal reflux disease) Hyperlipidemia Hypogonadism Hypothyroidism Incomplete right bundle branch block Osteoarthritis Paroxysmal atrial fibrillation Paroxysmal atrial flutter Type 2 diabetes mellitus Vocal cord nodule Home Medications ascorbic acid (vitamin C) 1,000 mg PO DAILY 04/03/18 [History Last Taken 04/03/18 08:00] levothyroxine 112 mcg PO DAILY 04/03/18 [History Last Taken 04/03/18 08:00] nitroglycerin 1 tab SUBLINGUAL PRN PRN 04/03/18 [History Last Taken Unknown] simvastatin 20 mg PO DAILY 04/03/18 [History Last Taken 04/02/18 21:00] testosterone cypionate 200 mg IM QMONTH 04/03/18 [History Last Taken 03/17/18] vitamin B complex 1 ea PO DAILY 04/03/18 [History Last Taken 04/03/18 08:00] isosorbide mononitrate 30 mg PO DAILY #30 tab 04/05/18 [Rx Last Taken Unknown] atenolol 25 mg tablet 37.5 mg PO BID tab 05/01/19 [History Last Taken Unknown] esomeprazole magnesium 20 mg capsule,delayed release 20 mg PO DAILY #90 cap 0 05/01/19 [History Last Taken Unknown] rivaroxaban 20 mg tablet 20 mg PO QPM 05/01/19 [History Last Taken Unknown] metformin 500 mg tablet,extended release 24 hr 500 mg PO BID tab 11/15/19 [History Last Taken Unknown] lisinopril 40 mg PO DAILY 06/08/20 [History Last Taken Unknown] amlodipine 2.5 mg tablet 2.5 mg PO DAILY 01/18/21 [History Last Taken Unknown] magnesium oxide 420 mg PO DAILY tab 01/18/21 [History Last Taken Unknown] Allergy/AdvReac Type Severity Reaction Status Date / Time allopurinol Allergy Rash Verified 03/14/21 17:11 sildenafil [From Viagra] Allergy Other Verified 03/14/21 17:09 tadalafil [From Cialis] Allergy Other Verified 03/14/21 17:09 Family History Father Myocardial infarction Uncle Myocardial infarction Other CAD (coronary artery disease) Surgical History H/O coronary artery bypass surgery (04/15/00) History of cardioversion (08/26/18) History of excision of pilonidal cyst History of prostate surgery History of shoulder surgery History of tonsillectomy Social History Smoking Status: Never smoker ROS ROS ED Constitutional Constitutional ED: Denies chills or fever(s) Eyes Eyes: Denies change in vision ENT ENT ED: Denies sore throat Cardiovascular Cardiovascular: Denies chest pain Respiratory/Chest Respiratory/Chest: Denies cough or dyspnea Gastrointestinal Gastrointestinal: Denies abdominal pain, diarrhea, nausea or vomiting Genitourinary Genitourinary ED: Denies dysuria Musculoskeletal Musculoskeletal: Denies back pain Integumentary Denies rash Neurologic Neurologic: Reports paresthesias; Denies headache(s) or weakness Psychiatric Psychiatric: Denies anxiety or depression Endocrine Endocrinology: Denies polydipsia or polyuria Allergic/Immunologic Allergic/Immunologic ED: Denies urticaria EXAM Physical Exam Const Vital Signs: 03/14/21 17:06 03/14/21 18:06 03/14/21 19:06 Temperature 97.3 F L Temperature Source Temporal Pulse Rate 55 L 56 L Respiratory Rate 16 16 Respiratory Effort Normal Non-Labored Respiratory Pattern Normal Blood Pressure 117/54 L 158/84 H Blood Pressure Mean 75 108 Pulse Ox 98 99 Oxygen Delivery Method Room Air Positive well nourished and well developed General Appearance ED: well developed HEENT Reports normocephalic and head/scalp atraumatic Eyes PERRL and EOMs intact bilaterally Neck supple Chest Wall inspection of chest normal and palpation of chest normal Resp normal respiratory effort and clear to auscultation bilaterally Cardio regular rate and regular rhythm GI normal to inspection, nondistended, normoactive bowel sounds Palpation: soft Extremity normal to inspection Neuro oriented x3 and no sensory deficits noted Neuro Narrative: NIH equals 0 at the time of my examination. Sensorium / Orientation: alert Motor Exam: strength 5/5 throughout Psych mental status grossly normal Skin no rashes or lesions noted MDM MDM MDM Narrative Medical decision making narrative: Patient's presentation is concerning for TIA. Labs, EKG, CTA head and neck are obtained. Lab Data Attestation: I reviewed the patient's lab results. Labs: Laboratory Results - last 24 hr 03/14/21 03/14/21 03/14/21 17:50 17:50 17:50 WBC 7.6 RBC 4.25 L Hgb 13.4 Hct 39.8 L MCV 93.6 MCH 31.5 MCHC 33.7 RDW Std Deviation 45.6 H RDW Coeff of [place] 13.3 Plt Count 190 MPV 11.0 Immature Gran % (Auto) 0.300 Neut % (Auto) 51.7 Lymph % (Auto) 36.0 [place] % (Auto) 8.3 Eos % (Auto) 3.3 Baso % (Auto) 0.4 Absolute Neuts (auto) 4.0 Absolute Lymphs (auto) 2.75 Nucleated RBC % 0 PT 13.8 INR 1.1 APTT 38.7 H Sodium 132 L Potassium 4.3 Chloride 100 Carbon Dioxide 27.0 Anion Gap 5 BUN 20 H Creatinine 1.36 H Estim Creat Clear Calc 39.09 Est GFR (MDRD) Af Amer 65 Est GFR (MDRD) Non-Af 54 L BUN/Creatinine Ratio 14.7 Glucose 175 H Calcium 8.9 Radiography Diagnostic Testing: Radiology Impression Head/Neck CTA 03/14/21 18:12 IMPRESSION: Unenhanced CT Brain: No acute intracranial abnormalities. 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 CTA Neck: 60% stenosis of the proximal right ICA, 50% stenosis of the proximal left ICA. 50% stenosis of the bilateral vertebral arteries at the base of the skull. Individualized dose optimization techniques were used for this CT. at 1930 Reported and signed by: Von Jett MD Electronically Signed: Von Jett MD at 19:29 EDT Tel , Service support , ADDENDUM: 03/14/211948 IMPRESSION: Unenhanced CT Brain: No acute intracranial abnormalities. 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 CTA Neck: 60% stenosis of the proximal right ICA, 50% stenosis of the proximal left ICA. 50% stenosis of the bilateral vertebral arteries at the base of the skull. Individualized dose optimization techniques were used for this CT. at 1930 Reported and signed by: Von Jett MD N.B. : The above Results were Read Back by Von Jett MD to Dr. Mamie Frances MD, and understanding confirmed on 03/14/2021 19:42:32 (ET). Electronically Signed: Von Jett MD at 19:29 EDT Tel , Service support , EKG Initial EKG: Interpretation: Sinus Bradycardia (Sinus bradycardia 54 bpm. Incomplete right bundle branch block. No acute ischemia.) Treatment and Re-Evaluation Comments:: Patient had an NIH score of 0 on exam. CTA of the head reveals occlusion of right M2 branch of the sylvian fissure. There is also evidence of 60% stenosis of the proximal right ICA, 50% stenosis of the proximal left ICA. 50% stenosis of the bilateral vertebral arteries are noted. The M2 occlusion does not correlate with the patient's exam or previous symptoms. I did speak with Dr. Presley, neurology at [facility]. 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 He did recommend follow-up with vascular surgery within the next several weeks secondary to the 50 to 60% lesions noted in the internal carotids. Patient is to stay on Xarelto. I did speak with Dr. Rosario, on-call for patient's PCP. She will put in a note for initiating a vascular surgery consult for the patient. All this information has been relayed to the patient and at bedside. They are in agreement. Discharge Plan Triage Chief Complaint: Dizziness ED Provider: Mamie Frances Dx/Rx/DC Orders Clinical Impression: TIA (transient ischemic attack) Instructions: ED TIA: Transient Ischemic Attack Prescriptions: No Action esomeprazole magnesium 20 mg capsule,delayed release(DR/EC) 20 mg PO DAILY Qty: 90 RF: 0 Xarelto 20 mg tablet 20 mg PO QPM RF: 0 atenolol 25 mg tablet 37.5 mg PO BID RF: 0 metformin 500 mg tablet extended release 24 hr 500 mg PO BID RF: 0 amlodipine 2.5 mg tablet 2.5 mg PO DAILY RF: 0 magnesium oxide 200 mg magnesium tablet 420 mg PO DAILY RF: 0 ascorbic acid (vitamin C) 1,000 MG tablet 1,000 mg PO DAILY RF: 0 simvastatin 20 MG tablet 20 mg PO DAILY RF: 0 nitroglycerin 0.4 MG tablet, sublingual 1 tab sublingual PRN PRN (Reason: Cardiac/Chest Pain) RF: 0 testosterone cypionate 200 MG/ML oil 200 mg IM QMONTH RF: 0 vitamin B complex 1 EACH capsule 1 ea PO DAILY RF: 0 levothyroxine 112 MCG tablet 112 mcg PO DAILY RF: 0 isosorbide mononitrate 30 MG tablet 30 mg PO DAILY Qty: 30 RF: 0 lisinopril 20 MG tablet 40 mg PO DAILY RF: 0 Primary Care Provider: Erik Ji Referrals: Erik Ji MD [Primary Care Provider] - Activity Restrictions/Additional Instructions: As discussed, please follow-up with vascular surgery for the next several weeks. Your primary care office is working on an appointment for you. Disposition Disposition: Home, Self Care
[2021-03-14 18:34] LABS: Absolute Lymphocyte Count 2.75 X10^3/uL (0.83-4.51); Basophil# 0.03 X10^3/uL; Basophil% 0.4 % (0-1); Eosinophil# 0.25 X10^3/uL; Eosinophils% 3.3 % (0-5); Hematocrit 39.8 % (40-54); Hemoglobin 13.4 g/dL (13.0-16.5); Lymphocyte # 2.75 X10^3/ul (0.83-4.51); Mean Corp Hgb Conc 33.7 g/dL (32-36); Mean Corpuscular Hgb 31.5 pg (27.0-32.0); Mean Corpuscular Volume 93.6 fL (80-94); Monocyte# 0.63 X10^3/uL; Monocyte% 8.3 % (0-10); NRBC Flagged by Analyzer 0 % (0-5); Neutrophil # 3.95 X10^3/uL (2.7-7.7); Neutrophil % 51.7 % (47-70); Platelet Count 190 K/mm3 (150-450); RBC Distribution Width CV 13.3 % (11.6-14.6); RBC Distribution Width SD 45.6 fl (35.1-43.9); Red Blood Count 4.25 M/mm3 (4.6-6.2); White Blood Count 7.6 K/mm3 (4.4-11.0)
[2021-03-14 18:42] LABS: Anion Gap 5 (5-15); BUN 20 mg/dL (7-18); BUN/Creat Ratio 14.7 RATIO (10-20); Calcium,Total 8.9 mg/dL (8.5-10.1); Chloride 100 mmol/L (98-107); Creatinine, Serum 1.36 mg/dL (0.70-1.30); EST Glomerular Filtration Rate 54 mL/min (>60); Est Glom Filt Rate - Afr Amer 65 mL/min (>60); Estimated Creatinine Clearance 39.09 ml/min; Glucose 175 mg/dL (74-106); Potassium 4.3 mmol/L (3.5-5.1); Sodium Level 132 mmol/L (136-145)
[2021-03-14 19:06] VITALS: BP 158/84; PULSE 56; RESP 16; O2SAT 99
[2021-03-14] MEDS: 0.9% Normal Saline 1,000 ML 999 ML IV (19:13)
[2021-03-14 19:23] LABS: International Normalized Ratio 1.1; Partial Thromboplast Time 38.7 Seconds (24.1-36.2); Prothrombin Time (Protime)PT. 13.8 SECONDS (11.7-14.9)
[2021-03-14 20:30] VITALS: BP 170/84; PULSE 56; RESP 15; O2SAT 99
== END 2021-03-14 20:31 | disposition home or self-care (01) ==
PROVIDERS: Emergency Provider Emergency Medicine; PCP Internal Medicine
DX: G45.9 Transient cerebral ischemic attack, unspecified (principal); E03.9 Hypothyroidism, unspecified; E11.22 Type 2 diabetes mellitus with diabetic chronic kidney disease; E78.5 Hyperlipidemia, unspecified; I12.9 Hypertensive chronic kidney disease with stage 1 through stage 4 chronic kidney disease, or unspecified chronic kidney disease; N18.9 Chronic kidney disease, unspecified; I25.10 Atherosclerotic heart disease of native coronary artery without angina pectoris; I48.0 Paroxysmal atrial fibrillation; K21.9 Gastro-esophageal reflux disease without esophagitis; Z79.01 Long term (current) use of anticoagulants; Z79.84 Long term (current) use of oral hypoglycemic drugs; Z79.899 Other long term (current) drug therapy
CPT/HCPCS: 70496; 70498; 80048; 85025; 85610; 85730; 93005; 99284; J7030; Q9967; A4216

== ENCOUNTER → 2021-03-21 13:45 | Outpatient (CLI) | payer MEDICARE, OTHER, SELFPAY ==
[2021-03-14 17:06] VITALS: BMI 24.2
--- NOTE | 2021-03-21 13:47 | CDU_ITS ---
Reason For Study: Carotid stenosis Rt. Velocities/BP Lt. Velocities/BP Prox CCA 119.3/11.5 cm/sec. Prox CCA 112.1/9 cm/sec. Mid CCA 135.7/13.3 cm/sec. Mid CCA 110.9/9 cm/sec. Dist CCA 101/11.5 cm/sec. Dist CCA 98.6/10.2 cm/sec. Prox ICA 132.1/22.5 cm/sec. Prox ICA 99.2/20.6 cm/sec. Mid ICA 175.9/35.3 cm/sec. Mid ICA 102.8/26.1 cm/sec. Dist ICA 128.4/18.8 cm/sec. Dist ICA 72/14.6 cm/sec. Rt. ICA/CCA = 1.47. Lt. ICA/CCA = 0.93. Prox ECA 176.2 cm/sec. Prox ECA 210.6 cm/sec. Rt. Vert. 33.4/9.9 cm/sec. Lt. Vert. 49.8/11.3 cm/sec. Right Extracranial There is homogeneous, smooth atherosclerotic plaque noted in the right common carotid artery. There is heterogeneous, irregular atherosclerotic plaque noted in the right internal carotid artery. There is heterogeneous, irregular atherosclerotic plaque noted in the right external carotid artery. Antegrade flow is noted in the right vertebral artery. Left Extracranial There is homogeneous, smooth atherosclerotic plaque noted in the left common carotid artery. There is heterogeneous, irregular atherosclerotic plaque noted in the left internal carotid artery. There is homogeneous, smooth atherosclerotic plaque noted in the left external carotid artery. Antegrade flow is noted in the left vertebral artery. Procedure Carotid Duplex 29373. This is a Carotid Duplex examination using B-mode, color flow and specral Doppler. Exam performed in department. VL/Carotid Duplex Ultrasound Interpretation Summary Irregular calcific plaque of the proximal right internal carotid artery with 50 to 69% stenosis Less than 50% stenosis right external carotid artery Irregular calcific plaque at the proximal left internal carotid artery with les s than 50% stenosis Greater than 50% stenosis left external carotid artery Patent and antegrade vertebral arteries bilaterally Ordering Physician: Jose Spence Referring Physician: Erik Ji M.D. Performed By: Aida Beard RVT
== END ==
PROVIDERS: PCP Internal Medicine; Referring Provider Surgery; Visit Provider Surgery
DX: I65.23 Occlusion and stenosis of bilateral carotid arteries (principal)
CPT/HCPCS: 93880

== ENCOUNTER → 2021-04-08 09:56 | Outpatient (CLI) | payer MEDICARE, OTHER, SELFPAY ==
[2021-03-22 10:44] VITALS: BMI 23.8
--- NOTE | 2021-04-08 09:57 | ECHOTEE_ITS ---
Reason For Study: TIA/CVA Medication DICK probe 6VT-D (SN [id number]) passed with minimal difficulty. No complications were noted. Cetacaine Topical [place] given X3 orally. Versed 2 mg given slow IVP. Fentanyl 50 mcg given slow IVP. Performed a rapid injection of agitated mix of 9 cc saline and 1cc air to assess for atrial septal defect. Left Ventricle Normal LV size. Left ventricular systolic function is normal. The estimated ejection fraction is 60 %. No regional wall motion abnormalities noted. Right Ventricle Normal RV size. Normal systolic function. Atria Bubble contrast study negative for right to left interatrial shunt. The left atrium is mildly enlarged. 0.6 x 0.4 cm mobile mass noted in the left atrium consistent with a probable thrombus. Artifact less likely. Normal right atrium. Mitral Valve Normal mitral valve. Mild (1+) eccentric mitral valve insufficiency. Tricuspid Valve Normal tricuspid valve. Aortic Valve Normal aortic valve. Trisinus/trileaflet aortic valve. Pulmonic Valve Normal pulmonic valve. Vessels Normal aortic root. The pulmonary artery is normal size. Pericardium No pericardial effusion. ECHO/Echo Transesophageal (DICK) Interpretation Summary Normal LV size. Left ventricular systolic function is normal. The estimated ejection fraction is 60 %. The left atrium is mildly enlarged. 0.6 x 0.4 cm mobile mass noted in the left atrium consistent with a probable th rombus. Artifact less likely. Ordering Physician: Nitish Peraza Referring Physician: Erik Ji M.D. Performed By: Allan Hooper RCS
== END ==
PROVIDERS: PCP Internal Medicine; Referring Provider Internal Medicine Cardiovascular Disease; Visit Provider Internal Medicine Cardiovascular Disease
DX: G45.9 Transient cerebral ischemic attack, unspecified (principal); I48.92 Unspecified atrial flutter; I48.0 Paroxysmal atrial fibrillation; I45.10 Unspecified right bundle-branch block; I10 Essential (primary) hypertension; I25.10 Atherosclerotic heart disease of native coronary artery without angina pectoris; E78.5 Hyperlipidemia, unspecified; Z95.1 Presence of aortocoronary bypass graft
CPT/HCPCS: 93312; 93320; 93325; J7040; A4216

== ENCOUNTER 2021-12-13 10:42 | Outpatient (CLI) | payer MEDICARE, OTHER, SELFPAY ==
--- NOTE | 2021-12-13 10:47 | CDU_ITS ---
Reason For Study: Carotid stenosis Rt. Velocities/BP Lt. Velocities/BP Prox CCA 99.5/10.8 cm/sec. Prox CCA 101/9.7 cm/sec. Mid CCA 102.1/9.5 cm/sec. Mid CCA 110.1/11.5 cm/sec. Dist CCA 70.8/9.5 cm/sec. Dist CCA 84.6/15.2 cm/sec. Prox ICA 126.4/24.3 cm/sec. Prox ICA 75.3/21.2 cm/sec. Mid ICA 177.6/26.1 cm/sec. Mid ICA 106/20 cm/sec. Dist ICA 93.7/13.3 cm/sec. Dist ICA 63/13.9 cm/sec. Rt. ICA/CCA = 1.78. Lt. ICA/CCA = 1.05. Prox ECA 146.7/6 cm/sec. Prox ECA 167.4 cm/sec. Rt. Vert. 93.7/15.2 cm/sec. Lt. Vert. 49.5/12.6 cm/sec. Right Extracranial There is homogeneous, smooth atherosclerotic plaque noted in the right common carotid artery. There is heterogeneous, irregular atherosclerotic plaque noted in the right internal carotid artery. There is heterogeneous, irregular atherosclerotic plaque noted in the right external carotid artery. Antegrade flow is noted in the right vertebral artery. Left Extracranial There is homogeneous, smooth atherosclerotic plaque noted in the left common carotid artery. There is heterogeneous, irregular atherosclerotic plaque noted in the left internal carotid artery. There is homogeneous, smooth atherosclerotic plaque noted in the left external carotid artery. Antegrade flow is noted in the left vertebral artery. Procedure Carotid Duplex [id number]. This is a Carotid Duplex examination using B-mode, color flow and specral Doppler. Exam performed in department. VL/Carotid Duplex Ultrasound Interpretation Summary Irregular calcific plaque of the proximal right internal carotid artery with 50 to 69% stenosis Less than 50% stenosis right external carotid artery Irregular calcific plaque at the proximal left internal carotid artery with les s than 50% stenosis Less than 50% stenosis left external carotid artery Patent and antegrade vertebral arteries bilaterally No clinical change from 03/21/21 Ordering Physician: Jose Spence Referring Physician: Erik Ji M.D. Performed By: Aida Beard RVT
== END 2021-12-13 23:59 | disposition home or self-care (01) ==
LOC: CVS 10:46
PROVIDERS: PCP Internal Medicine; Referring Provider Surgery; Visit Provider Surgery
DX: I65.23 Occlusion and stenosis of bilateral carotid arteries (principal)
CPT/HCPCS: 93880

== ENCOUNTER 2021-12-26 10:52 | Outpatient (CLI) | payer MEDICARE, OTHER, SELFPAY ==
--- NOTE | 2021-12-26 10:54 | ECHOD_ITS ---
Reason For Study: ATRIAL FIB-FLUTTER Procedure This was a 2D Doppler, Color Flow transthoracic echocardiogram. Exam performed in department. Left Ventricle Normal LV size. Left ventricular systolic function is normal. The estimated ejection fraction is 55 %. Stage 1 diastolic dysfunction. No regional wall motion abnormalities noted. Right Ventricle Normal RV size. Normal systolic function. Atria Normal left atrium. Normal right atrium. Mitral Valve Normal mitral valve. Mild (1+) eccentric mitral valve insufficiency. Tricuspid Valve Normal tricuspid valve. Mild tricuspid valve insufficiency. Aortic Valve Trisinus/trileaflet aortic valve. Mild focal aortic valve calcification. Pulmonic Valve The pulmonic valve is not well visualized. Great Vessels Normal aortic root. The pulmonary artery is normal size. Pericardium/Pleural No pericardial effusion. MMode/2D Measurements & Calculations LVIDd: 4.3 cm IVSd: 1.2 cm Ao root diam: 3.0 cm LVIDs: 2.6 cm LVPWd: 1.2 cm RVDd: 3.2 cm FS: 39.9 % LAV(MOD-bp): 52.2 ml LVAd ap4: 25.1 cm2 SV(MOD-sp4): 48.5 ml LAV(MOD-bp) Indexed: 29.1 ml/m2 LVLd ap4: 7.2 cm LAV(MOD-sp2): 47.7 ml EDV(MOD-sp4): 71.9 ml LAV(MOD-sp4): 53.4 ml EDV(sp4-el): 74.6 ml LVAs ap4: 12.1 cm2 LVLs ap4: 5.7 cm ESV(MOD-sp4): 23.3 ml ESV(sp4-el): 22.0 ml EF(MOD-sp4): 67.5 % EF(sp4-el): 70.5 % SV(sp4-el): 52.6 ml LA A4 area: 19.4 cm2 LA dimension(2D): 3.8 cm RA A4 area: 16.2 cm2 Time Measurements MV dec time: 0.24 sec Doppler Measurements & Calculations MV E max aman: 71.0 cm/sec Lat Peak E' Aman: 9.5 cm/sec Med Peak E' Aman: 6.5 cm/sec MV A max aman: 62.4 cm/sec E/E' lat: 7.5 E/E' med: 11.0 MV E/A: 1.1 Ao V2 max: 147.4 cm/sec LV V1 max: 115.2 cm/sec PA V2 max: 121.1 cm/sec Ao max P.7 mmHg LV V1 max P.3 mmHg ECHO/Echo Complete Interpretation Summary Normal LV size. Left ventricular systolic function is normal. The estimated ejection fraction is 55 %. Mild (1+) eccentric mitral valve insufficiency. Mild tricuspid valve insufficiency. Stage 1 diastolic dysfunction. Ordering Physician: Nitish Peraza Referring Physician: MICHELL MATA Performed By: Kamla Wills RDCS
== END 2021-12-26 23:59 | disposition home or self-care (01) ==
LOC: CVS 10:53
PROVIDERS: PCP Internal Medicine; Referring Provider Internal Medicine Cardiovascular Disease; Visit Provider Internal Medicine Cardiovascular Disease
DX: I25.10 Atherosclerotic heart disease of native coronary artery without angina pectoris (principal)
CPT/HCPCS: 93306

== ENCOUNTER → 2023-07-02 | Outpatient (CLI) | payer MEDICARE, OTHER, SELFPAY ==
--- NOTE | 2023-07-02 09:46 | CDU_ITS ---
Reason For Study: Carotid artery disease Rt. Velocities/BP Lt. Velocities/BP Prox CCA 94.9/8 cm/sec. Prox CCA 85.3/8.8 cm/sec. Mid CCA 99.2/8 cm/sec. Mid CCA 100.3./9.1 cm/sec. Dist CCA 86.1/9.1 cm/sec. Dist CCA 90.5/9.1 cm/sec. Prox ICA 126.6/24.3 cm/sec. Prox ICA 84.6/15.2 cm/sec. Mid ICA 182.9/33.6 cm/sec. Mid ICA 104.7/22.5 cm/sec. Dist ICA 97.4/11.5 cm/sec. Dist ICA 76.5/12.6 cm/sec. Rt. ICA/CCA = 1.93. Lt. ICA/CCA = 1.16. Prox ECA 170.4 cm/sec. Prox ECA 124.7 cm/sec. Rt. Vert. 49.4/9.7 cm/sec. Lt. Vert. 52/10.2 cm/sec. Right Extracranial There is homogeneous, smooth atherosclerotic plaque noted in the right common carotid artery. There is heterogeneous, irregular atherosclerotic plaque noted in the right internal carotid artery. There is heterogeneous, irregular atherosclerotic plaque noted in the right external carotid artery. Antegrade flow is noted in the right vertebral artery. Left Extracranial There is homogeneous, smooth atherosclerotic plaque noted in the left common carotid artery. There is heterogeneous, irregular atherosclerotic plaque noted in the left internal carotid artery. There is homogeneous, smooth atherosclerotic plaque noted in the left external carotid artery. Antegrade flow is noted in the left vertebral artery. Procedure This is a Carotid Duplex examination using B-mode, color flow and specral Doppler. Carotid Duplex [id number]. Exam performed in department. VL/Carotid Duplex Ultrasound Interpretation Summary Irregular calcific plaque with shadowing at the proximal right internal carotid artery with 50 to 69% stenosis Less than 50% stenosis right external carotid artery Irregular calcific plaque with shadowing at the proximal left internal carotid artery with less than 50% stenosis Less than 50% stenosis left external carotid artery Patent and antegrade vertebral arteries bilaterally No change from the previous examination of December 13, 2021 Ordering Physician: Simone Castaneda Referring Physician: Erik Ji M.D. Performed By: Aida Beard RVT
== END | disposition home or self-care (01) ==
LOC: CVS 09:45
PROVIDERS: PCP Internal Medicine; Referring Provider Nurse Practitioner Family; Visit Provider Nurse Practitioner Family
DX: I65.23 Occlusion and stenosis of bilateral carotid arteries (principal)
CPT/HCPCS: 93880

== ENCOUNTER → 2024-09-23 | Outpatient (CLI) | payer MEDICARE, OTHER, SELFPAY ==
--- NOTE | 2024-09-23 08:56 | CDU_ITS ---
Reason For Study: CAROTID STENOSIS Rt. Velocities/BP Lt. Velocities/BP Prox CCA 75.6/10.6 cm/sec. Prox CCA 111.1/0.0 cm/sec. Mid CCA 83.0/13.0 cm/sec. Mid CCA 103.4/13.9 cm/sec. Dist CCA 87.9/8.1 cm/sec. Dist CCA 81.8/10.6 cm/sec. Prox ICA 244.4/50.4 cm/sec. Prox ICA 85.1/21.2 cm/sec. Mid ICA 111.1/16.0 cm/sec. Mid ICA 62.6/12.6 cm/sec. Dist ICA 72.3/13.9 cm/sec. Dist ICA 49.7/11.9 cm/sec. Rt. ICA/CCA = 2.9. Lt. ICA/CCA = 0.8. Prox ECA 170.0/0.0 cm/sec. Prox ECA 152.8/0.0 cm/sec. Rt. Vert. 72.3/0.0 cm/sec. Lt. Vert. 55.4/14.7 cm/sec. Right Extracranial There is homogeneous, smooth atherosclerotic plaque noted in the right common carotid artery. There is heterogeneous, irregular atherosclerotic plaque noted in the right internal carotid artery. There is heterogeneous, irregular atherosclerotic plaque noted in the right external carotid artery. Antegrade flow is noted in the right vertebral artery. Left Extracranial There is homogeneous, smooth atherosclerotic plaque noted in the left common carotid artery. There is heterogeneous, irregular atherosclerotic plaque noted in the left internal carotid artery. There is heterogeneous, irregular atherosclerotic plaque noted in the left external carotid artery. Antegrade flow is noted in the left vertebral artery. Procedure Carotid Duplex [id number]. This is a Carotid Duplex examination using B-mode, color flow and specral Doppler. Exam performed in department. VL/Carotid Duplex Ultrasound Interpretation Summary Severe (>70%) stenosis right extracranial internal carotid. Mild (<50%) stenosis left extracranial internal carotid. Patent and antegrade vertebrals bilaterally. Ordering Physician: Nitish Peraza Referring Physician: Erik Ji M.D. Performed By: Amaury Karimi RVT and Student
--- NOTE | 2024-09-23 08:56 | ECHOD_ITS ---
Reason For Study: ARRHYTHMIA Procedure This was a 2D Doppler, Color Flow transthoracic echocardiogram. Exam performed in department. Left Ventricle Normal LV size. Apical false tendon noted. Mild concentric left ventricular hypertrophy. The left ventricular ejection fraction is 60 %. Mild segmental systolic dysfunction (see wall motion). Infero-Basal: Akinetic. Mid-Inferior: Hypokinetic. There are regional wall motion abnormalities as specified. The rest of the wall segments are normal. Right Ventricle Normal RV size. Normal systolic function. Atria Normal left atrium. Normal right atrium. Mitral Valve Normal mitral valve. Mild (1+) eccentric mitral valve insufficiency. Tricuspid Valve Normal tricuspid valve. Aortic Valve Trisinus/trileaflet aortic valve. Mild focal aortic valve calcification. Pulmonic Valve Normal pulmonic valve. Great Vessels Normal aortic root. The pulmonary artery is normal size. Inferior vena cava collapse with respiration. Pericardium/Pleural No pericardial effusion. MMode/2D Measurements & Calculations LVIDd: 4.7 cm IVSd: 1.2 cm LVOT diam: 2.1 cm LVIDs: 3.2 cm LVPWd: 1.3 cm LVOT area: 3.6 cm2 FS: 31.4 % Ao root diam: 2.8 cm LAV(MOD-bp): 52.9 ml LVAd ap4: 27.0 cm2 LAV(MOD-bp) Indexed: 30.0 ml/m2 LVLd ap4: 7.0 cm LAV(MOD-sp2): 71.2 ml EDV(MOD-sp4): 85.1 ml LAV(MOD-sp4): 35.9 ml EDV(sp4-el): 87.8 ml LVAs ap4: 15.8 cm2 LVLs ap4: 6.0 cm ESV(MOD-sp4): 36.6 ml ESV(sp4-el): 35.5 ml EF(MOD-sp4): 57.0 % EF(sp4-el): 59.6 % SV(MOD-sp4): 48.5 ml SV(sp4-el): 52.3 ml LA A4 area: 14.5 cm2 SI(MOD-sp4): 27.5 ml/m2 LA dimension(2D): 4.7 cm RA A4 area: 11.7 cm2 Time Measurements MV dec time: 0.19 sec Doppler Measurements & Calculations MV E max aman: 105.7 cm/sec Lat Peak E' Aman: 9.5 cm/sec Med Peak E' Aman: 6.3 cm/sec MV A max aman: 42.9 cm/sec E/E' lat: 11.1 E/E' med: 16.9 MV E/A: 2.5 Ao V2 max: 117.3 cm/sec LV V1 max: 98.1 cm/sec MV dec slope: 555.6 cm/sec2 Ao max P.5 mmHg LV V1 max P.9 mmHg Ao V2 mean: 75.2 cm/sec LV V1 mean P.1 mmHg Ao mean P.6 mmHg LV V1 mean: 67.1 cm/sec Ao V2 VTI: 29.4 cm LV V1 VTI: 25.4 cm AV (velocity ratio): 0.87 GUALBERTO(I,D): 3.1 cm2 GUALBERTO(V,D): 3.0 cm2 SV(LVOT): 91.3 ml PA V2 max: 126.8 cm/sec PA V2 mean: 79.4 cm/sec ECHO/Echo Complete Interpretation Summary Normal LV size. Mild concentric left ventricular hypertrophy. The left ventricular ejection fraction is 60 %. Mild segmental systolic dysfunction (see wall motion). Ordering Physician: Nitish Peraza Referring Physician: Nitish Peraza Performed By: Cyndi Franco RCS
== END | disposition home or self-care (01) ==
LOC: CVS 08:54
PROVIDERS: PCP Internal Medicine; Referring Provider Internal Medicine Cardiovascular Disease; Visit Provider Internal Medicine Cardiovascular Disease
DX: I48.0 Paroxysmal atrial fibrillation (principal); I65.23 Occlusion and stenosis of bilateral carotid arteries
CPT/HCPCS: 93306; 93880

== ENCOUNTER → 2025-05-01 | Outpatient (CLI) | payer MEDICARE, OTHER, SELFPAY ==
--- NOTE | 2025-05-01 12:46 | CDU_ITS ---
Reason For Study Reason For Study: Carotid stenosis Rt. Velocities/BP Lt. Velocities/BP Prox CCA 91.6/9.1 cm/sec. Prox CCA 115.6/9.7 cm/sec. Mid CCA 89.4/10.2 cm/sec. Mid CCA 80.9/11.5 cm/sec. Dist CCA 78.4/11.3 cm/sec. Dist CCA 102.8/9.7 cm/sec. Prox ICA 236.9/55.2 cm/sec. Prox ICA 90/24.3 cm/sec. Mid ICA 97.4/11.5 cm/sec. Mid ICA 84.6/17 cm/sec. Dist ICA 55.1/9.7 cm/sec. Dist ICA 58.6/14.6 cm/sec. Rt. ICA/CCA = 2.65. Lt. ICA/CCA = 1.11. Prox ECA 157.6 cm/sec. Prox ECA 144.8 cm/sec. Rt. Vert. 103.5/20 cm/sec. Lt. Vert. 55.1/14.5 cm/sec. Right Extracranial There is homogeneous, smooth atherosclerotic plaque noted in the right common carotid artery. There is heterogeneous, irregular atherosclerotic plaque noted in the right internal carotid artery. There is heterogeneous, irregular atherosclerotic plaque noted in the right external carotid artery. Antegrade flow is noted in the right vertebral artery. Left Extracranial There is homogeneous, smooth atherosclerotic plaque noted in the left common carotid artery. There is heterogeneous, irregular atherosclerotic plaque noted in the left internal carotid artery. There is heterogeneous, irregular atherosclerotic plaque noted in the left external carotid artery. Antegrade flow is noted in the left vertebral artery. Procedure This is a Carotid Duplex examination using B-mode, color flow and specral Doppler. Carotid Duplex 74007. Exam performed in department. VL/Carotid Duplex Ultrasound Interpretation Summary Severe (>70%) stenosis right extracranial internal carotid. Mild (<50%) stenosis left extracranial internal carotid. Patent and antegrade vertebrals bilaterally. Ordering Physician: Jessica Hadley Referring Physician: Erik Ji M.D. Performed By: Aida Beard RVT
== END | disposition home or self-care (01) ==
LOC: CVS 12:46
PROVIDERS: PCP Internal Medicine; Referring Provider Physician Assistant; Visit Provider Physician Assistant
DX: I65.23 Occlusion and stenosis of bilateral carotid arteries (principal)
CPT/HCPCS: 93880